=== PATIENT | female | born 1985 | race Caucasian/White ===

== ENCOUNTER 2018-03-28 04:50 | Inpatient (IN) | payer MEDICAID ==
[2018-03-28] MEDS ORDERED: CARBOPROST 250 MCG INJ IM (06:00)
[2018-03-28] MEDS ORDERED: LIDOCAINE 1% (MPF) 30 ML INJ INJ (06:00)
[2018-03-28] MEDS ORDERED: BUTORPHANOL 2 MG INJ IV (06:00)
[2018-03-28] MEDS ORDERED: OXYTOCIN 30 UNITS/LR 500 ML IV (06:00)
[2018-03-28] MEDS ORDERED: MISOPROSTOL 200 MCG TAB PR (06:00)
[2018-03-28] MEDS ORDERED: METHYLERGONOVINE 0.2 MG INJ IM (06:00)
[2018-03-28] MEDS: LACTATED RINGER'S 1,000 ML IV ×3 (06:43→13:44)
[2018-03-28 07:02] LABS: ADD MAN DIFF? NO
[2018-03-28 07:07] LABS: BASOPHILS % 0.3 % (0.0-2.0); EOSINOPHILS % 0.3 % (0.0-7.0); HEMATOCRIT 35.1 % (37.0-47.0); HEMOGLOBIN 11.2 g/dl (12.0-16.0); LYMPHOCYTES # 2.1 10^3/ul (0.8-2.9); LYMPHOCYTES % 20.9 % (15.0-51.0); MEAN CORPUSCULAR HEMOGLOBIN 27.9 pg (29.0-33.0); MEAN CORPUSCULAR HGB CONC 31.9 g/dl (32.0-37.0); MEAN CORPUSCULAR VOLUME 87.3 fl (82.0-101.0); MEAN PLATELET VOLUME 10.7 fl (7.4-10.4); MONOCYTE # 0.6 10^3/ul (0.3-0.9); MONOCYTES % 6.4 % (0.0-11.0); NEUTROPHILS % 70.7 % (39.0-77.0); NUCLEATED RED BLOOD CELLS # 0.1 10^3/ul (0.0-0.0); NUCLEATED RED BLOOD CELLS% 0.5 /100WBC (0.0-0.0); PLATELET COUNT 191 10^3/UL (140-415); RED BLOOD COUNT 4.02 10^6/ul (4.20-5.40); RED CELL DISTRIBUTION WIDTH 17.5 % (11.5-14.5)
[2018-03-28 07:07] LABS: WHITE BLOOD COUNT 9.9 10^3/ul (4.8-10.8)
[2018-03-28 07:23] LABS: ALANINE AMINOTRANSFERASE 26 IU/L (13-69); ALBUMIN 3.1 g/dl (3.3-4.9); ALBUMIN/GLOBULIN RATIO 1.03; ALKALINE PHOSPHATASE 157 IU/L (42-121); ANION GAP 6 (8-16); ASPARTATE AMINO TRANSFERASE 21 IU/L (15-46); BILIRUBIN,INDIRECT 0.1 mg/dl (0-1.1); BILIRUBIN,TOTAL 0.1 mg/dl (0.2-1.3); BLOOD UREA NITROGEN 10 mg/dl (7-20); CALCIUM 8.9 mg/dl (8.4-10.2); CARBON DIOXIDE 23 mmol/L (21-31); CHLORIDE 109 mmol/L (97-110); CREATININE 0.59 mg/dl (0.44-1.00); GLUCOSE 89 mg/dl (70-220); POTASSIUM 4.3 mmol/L (3.5-5.1); SODIUM 134 mmol/L (135-144); TOTAL PROTEIN 6.1 g/dl (6.1-8.1); URIC ACID 4.6 mg/dl (3.1-7.9)
[2018-03-28 07:26] LABS: INR 0.93; PROTIME 12.6 Sec (11.9-14.9)
[2018-03-28 07:54] LABS: HEPATITIS B SURFACE ANTIGEN NEGATIVE (NEGATIVE)
[2018-03-28] MEDS ORDERED: DIPHENHYDRAMINE 50 MG INJ IV (09:00)
[2018-03-28] MEDS ORDERED: EPHEDrine SULFATE 50 MG/5 ML SYG IV (09:00)
[2018-03-28] MEDS ORDERED: ONDANSETRON 4 MG INJ IV ×2 (09:00→16:00)
[2018-03-28] MEDS ORDERED: NALOXONE (0.4 MG/ML) INJ IV (09:00)
[2018-03-28] MEDS: FENTAnyl 2MCG/ML-ROPIV 0.2% 100 ML BAG EPI (09:47)
[2018-03-28] MEDS: OXYTOCIN 30 UNITS/LR 500 ML IV ×4 (10:00→19:06)
[2018-03-28 10:10] LABS: ADD UMIC YES; UR ASCORBIC ACID NEGATIVE (NEGATIVE); UR BILIRUBIN (Dip) NEGATIVE (NEGATIVE); UR BLOOD (Dip) NEGATIVE (NEGATIVE); UR CLARITY CLEAR (CLEAR); UR COLOR YELLOW (YELLOW); UR GLUCOSE (Dip) NEGATIVE (NEGATIVE); UR KETONES (Dip) NEGATIVE (NEGATIVE); UR LEUKOCYTE ESTERASE (Dip) NEGATIVE Leu/ul (NEGATIVE); UR MUCUS FEW /HPF (NONE SEEN); UR NITRITE (Dip) NEGATIVE (NEGATIVE); UR RBC 0 /HPF (0-5); UR SPECIFIC GRAVITY (Dip) 1.018 (1.003-1.030); UR SQUAMOUS EPITHELIAL CELL FEW /HPF (FEW); UR TOTAL PROTEIN (Dip) 2+ mg/dl (NEGATIVE); UR UROBILINOGEN (Dip) NEGATIVE (NEGATIVE); UR WBC 0 /HPF (0-5)
[2018-03-28] MEDS: IBUPROFEN 600 MG TAB PO ×2 (13:58→19:02)
[2018-03-28] MEDS ORDERED: OXYCODONE/ASPIRIN (4.88/325) TAB PO ×2 (16:00)
[2018-03-28] MEDS ORDERED: ACETAMINOPHEN 325 MG TAB PO (16:00)
[2018-03-28] MEDS ORDERED: HYDROCODONE/APAP (5/325) TAB PO ×2 (16:00)
[2018-03-28 17:04] LABS: RAPID PLASMA REAGIN NONREACTIVE (NR)
[2018-03-28] MEDS: DIBUCAINE 1% 30 GM OINT PR (19:02)
[2018-03-28] MEDS: WITCH HAZEL/GLYCERIN PAD PR (19:02)
[2018-03-28] MEDS: BENZOCAINE 20% 56 ML SPRAY TOP (19:02)
[2018-03-28] MEDS: SENNA/DOCUSATE NA (8.6MG/50MG) TAB PO (21:51)
[2018-03-29] MEDS: IBUPROFEN 600 MG TAB PO ×4 (00:45→17:36)
[2018-03-29] MEDS: SENNA/DOCUSATE NA (8.6MG/50MG) TAB PO ×2 (09:55→20:56)
[2018-03-29] MEDS: LANOLIN 7 GM TUBE TOP (09:55)
[2018-03-29 10:01] LABS: ADD MAN DIFF? NO
[2018-03-29 10:02] LABS: WHITE BLOOD COUNT 10.1 10^3/ul (4.8-10.8)
[2018-03-29 10:02] LABS: BASOPHILS % 0.3 % (0.0-2.0); EOSINOPHILS % 0.4 % (0.0-7.0); HEMATOCRIT 28.4 % (37.0-47.0); LYMPHOCYTES # 2.4 10^3/ul (0.8-2.9); LYMPHOCYTES % 23.8 % (15.0-51.0); MEAN CORPUSCULAR HEMOGLOBIN 28.2 pg (29.0-33.0); MEAN CORPUSCULAR HGB CONC 31.7 g/dl (32.0-37.0); MONOCYTE # 0.6 10^3/ul (0.3-0.9); MONOCYTES % 6.4 % (0.0-11.0); NEUTROPHIL # 6.9 10^3/ul (1.6-7.5); NEUTROPHILS % 68.1 % (39.0-77.0); PLATELET COUNT 161 10^3/UL (140-415); RED BLOOD COUNT 3.19 10^6/ul (4.20-5.40); RED CELL DISTRIBUTION WIDTH 18.2 % (11.5-14.5)
[2018-03-30] MEDS: IBUPROFEN 600 MG TAB PO ×3 (00:11→11:51)
[2018-03-30] MEDS: MEASLES,MUMPS,RUBELLA VACCINE INJ SC* (09:00)
[2018-03-30] MEDS: SENNA/DOCUSATE NA (8.6MG/50MG) TAB PO (09:30)
[2018-03-30] MEDS: DIPHTH/TET/ACEL PERTUSS (ADULT) 0.5 ML VIAL IM* (13:57)
== END 2018-03-30 15:05 | disposition home or self-care (01) | DRG 774 ==
LOC: OBT 04:50 → L-D 04:50 → OBT 05:45 → L-D 05:45 → PP1 15:01
PROC: 10E0XZZ Delivery of Products of Conception, External Approach (ICD-10-PCS; principal; 2018-03-28)
PROC: 0HQ9XZZ Repair Perineum Skin, External Approach (ICD-10-PCS; 2018-03-28)
PROC: 3E033VJ Introduction of Other Hormone into Peripheral Vein, Percutaneous Approach (ICD-10-PCS; 2018-03-28)
DX: O70.0 First degree perineal laceration during delivery (principal); O10.92 Unspecified pre-existing hypertension complicating childbirth; Z3A.39 39 weeks gestation of pregnancy; Z37.0 Single live birth
CPT/HCPCS: 62319; 76815; 80053; 81001; 84560; 85025; 85610; 85730; 86592; 86850; 86900; 86901; 87340; 90715; 99464

== ENCOUNTER 2018-06-22 09:51 | Observation (INO) | payer MEDICAID ==
[~2018-06-22 09:51] MED LIST: CEFAZOLIN 1 GM INJ; SUCCINYLCHOLINE CHLORIDE 100 MG/5 ML SYG IV
[2018-06-22] MEDS ORDERED: LACTATED RINGER'S 1,000 ML IV (11:00)
[2018-06-22] MEDS ORDERED: BUPIVACAINE 0.25%/EPI (SDV) 30 ML INJ (11:09)
[2018-06-22 11:11] LABS: ADD UMIC YES; UR ASCORBIC ACID NEGATIVE (NEGATIVE); UR BACTERIA FEW /HPF (NONE SEEN); UR BILIRUBIN (Dip) NEGATIVE (NEGATIVE); UR BLOOD (Dip) NEGATIVE (NEGATIVE); UR CLARITY CLOUDY (CLEAR); UR COLOR YELLOW (YELLOW); UR GLUCOSE (Dip) NEGATIVE (NEGATIVE); UR KETONES (Dip) NEGATIVE (NEGATIVE); UR LEUKOCYTE ESTERASE (Dip) TRACE Leu/ul (NEGATIVE); UR MUCUS FEW /HPF (NONE SEEN); UR NITRITE (Dip) NEGATIVE (NEGATIVE); UR RBC 2 /HPF (0-5); UR SPECIFIC GRAVITY (Dip) 1.021 (1.003-1.030); UR SQUAMOUS EPITHELIAL CELL MANY /HPF (FEW); UR TOTAL PROTEIN (Dip) 1+ mg/dl (NEGATIVE); UR UROBILINOGEN (Dip) NEGATIVE (NEGATIVE); UR WBC 17 /HPF (0-5)
[2018-06-22 11:28] LABS: ADD MAN DIFF? NO
[2018-06-22 11:36] LABS: BASOPHILS % 0.4 % (0.0-2.0); EOSINOPHILS % 0.8 % (0.0-7.0); HEMATOCRIT 42.1 % (37.0-47.0); HEMOGLOBIN 13.3 g/dl (12.0-16.0); LYMPHOCYTES # 2.2 10^3/ul (0.8-2.9); LYMPHOCYTES % 44.8 % (15.0-51.0); MEAN CORPUSCULAR HEMOGLOBIN 27.4 pg (29.0-33.0); MEAN CORPUSCULAR HGB CONC 31.6 g/dl (32.0-37.0); MEAN CORPUSCULAR VOLUME 86.8 fl (82.0-101.0); MEAN PLATELET VOLUME 10.7 fl (7.4-10.4); MONOCYTE # 0.4 10^3/ul (0.3-0.9); MONOCYTES % 7.2 % (0.0-11.0); NEUTROPHIL # 2.3 10^3/ul (1.6-7.5); NEUTROPHILS % 46.6 % (39.0-77.0); PLATELET COUNT 253 10^3/UL (140-415); RED BLOOD COUNT 4.85 10^6/ul (4.20-5.40); RED CELL DISTRIBUTION WIDTH 14.2 % (11.5-14.5)
[2018-06-22 11:50] LABS: ALANINE AMINOTRANSFERASE 42 IU/L (13-69); ALBUMIN 4.3 g/dl (3.3-4.9); ALBUMIN/GLOBULIN RATIO 1.26; ALKALINE PHOSPHATASE 70 IU/L (42-121); ANION GAP 14 (8-16); ASPARTATE AMINO TRANSFERASE 37 IU/L (15-46); BILIRUBIN,INDIRECT 0.5 mg/dl (0-1.1); BILIRUBIN,TOTAL 0.5 mg/dl (0.2-1.3); BLOOD UREA NITROGEN 11 mg/dl (7-20); CALCIUM 9.3 mg/dl (8.4-10.2); CARBON DIOXIDE 24 mmol/L (21-31); CHLORIDE 108 mmol/L (97-110); CREATININE 0.64 mg/dl (0.44-1.00); GLUCOSE 93 mg/dl (70-220); POTASSIUM 4.3 mmol/L (3.5-5.1); SODIUM 142 mmol/L (135-144); TOTAL PROTEIN 7.7 g/dl (6.1-8.1)
[2018-06-22] MEDS ORDERED: PROPOFOL 20 ML (12:25)
[2018-06-22] MEDS ORDERED: FENTAnyl 50 MCG/ML VIAL (12:25)
[2018-06-22] MEDS ORDERED: GLYCOPYRROLATE 0.4 MG INJ (12:25)
[2018-06-22] MEDS ORDERED: LIDOCAINE 2% (SDV) 5 ML INJ (12:25)
[2018-06-22] MEDS ORDERED: ROCURONIUM 50 MG INJ (12:25)
[2018-06-22] MEDS ORDERED: NEOSTIGMINE 3 MG/3 ML SYRINGE (12:25)
[2018-06-22] MEDS ORDERED: MIDAZOLAM 1 MG/ML 2 ML INJ (12:25)
[2018-06-22] MEDS ORDERED: HYDROmorphONE 1 MG/5 ML IV SYRINGE IV ×2 (12:30)
[2018-06-22] MEDS ORDERED: morphine (1 MG/ML) 10ML SYRINGE IV ×3 (12:30)
[2018-06-22] MEDS ORDERED: ATROPINE 1 MG/10 ML SYRINGE IV (12:30)
[2018-06-22] MEDS ORDERED: ONDANSETRON 4 MG INJ IV (12:30)
[2018-06-22] MEDS ORDERED: EPHEDrine SULFATE 50 MG/5 ML SYG IV (12:30)
[2018-06-22] MEDS: BUPIVACAINE 0.25%/EPI (SDV) 30 ML INJ INJ (12:30)
[2018-06-22] MEDS ORDERED: DIPHENHYDRAMINE 50 MG INJ IV (12:30)
[2018-06-22] MEDS ORDERED: LABETALOL HCL 20MG INJ IV (12:30)
[2018-06-22] MEDS ORDERED: OXYCODONE/ACETAMINOPHEN (5/325) TAB PO ×2 (12:30)
[2018-06-22] MEDS ORDERED: MIDAZOLAM 1 MG/ML 2 ML INJ IV (12:30)
[2018-06-22] MEDS ORDERED: FENTAnyl 50 MCG/ML VIAL IV ×2 (12:30)
[2018-06-22] MEDS ORDERED: hydrALAzine 20 MG INJ IV (12:30)
[2018-06-22] MEDS ORDERED: DEXAMETHASONE 4 MG/ML 1 ML INJ (12:38)
[2018-06-22] MEDS ORDERED: ONDANSETRON 4 MG INJ (12:38)
[2018-06-22] MEDS ORDERED: SUGAMMADEX SODIUM 200 MG/2 ML VIAL IV (12:59)
[2018-06-22] MEDS: MEPERIDINE 25 MG INJ IV (13:34)
[2018-06-22] MEDS: HYDROmorphONE 1 MG/5 ML IV SYRINGE IV (14:11)
[2018-06-22] MEDS: KETOROLAC 30 MG INJ IV (18:48)
[2018-06-22] MEDS: HYDROCODONE/APAP (5/325) TAB PO (21:36)
== END 2018-06-22 22:35 | disposition home or self-care (01) ==
LOC: SDS 09:51 → REC 15:01 → MS1 16:30
DX: Z30.2 Encounter for sterilization (principal)
CPT/HCPCS: 58700; 80053; 81001; 84703; 85025; 88302